=== PATIENT | female | born 1955 | race Two or more races ===

== ENCOUNTER 2023-03-21 07:31 | Outpatient (RCR) | payer OTHER, SELFPAY | END 2023-03-21 23:59 | disposition home or self-care (01) | LOC: CRHB 07:31 | PROVIDERS: ATTENDING PHYSICIAN Internal Medicine Cardiovascular Disease | DX: I25.10 Atherosclerotic heart disease of native coronary artery without angina pectoris (principal); Z95.5 Presence of coronary angioplasty implant and graft | CPT/HCPCS: G0422; G0423 ==